=== PATIENT | male | born 1950 | race Caucasian/White ===

== ENCOUNTER 2017-09-22 12:11 | Emergency (ER) | payer MEDICARE, MEDICAID ==
--- NOTE | 2017-09-22 14:50 | RAD ---
INDICATION: Productive cough for one week. Cold symptoms. Remote history of tobacco use. COMPARISON: No relevant prior exams available on the [facility] PACS for comparison. TECHNIQUE: Dual energy PA and routine lateral views of the chest were obtained. REPORT: Clear lungs and pleural spaces. Negative for pneumothorax. The heart, pulmonary vasculature, and mediastinal contours are unremarkable. Unremarkable osseous structures and soft tissue contours. IMPRESSION: No evidence for acute intrathoracic disease.
--- NOTE | 2017-09-22 14:57 | ED ---
Respiratory - HPI Summary HPI Summary: Pt presents with . Pt with a h/o IDDM presents with 1 week h/o productive cough with white sputum. Pt denies fevers. + chills. + persistent coughing. mild nasal congestion. No nunez, vision change. no myalgia + sick contact + fatigue Pt's medications reviewed this visit - History of Current Complaint Chief Complaint: UCRespiratory Stated Complaint: COLD COMPYTOMS Time Seen by Provider: 09/22/17 13:59 Hx Obtained From: Patient, Family/Mental Hygienist Onset/Duration: Gradual Onset, Lasting Days Timing: Constant Initial Severity: Mild Current Severity: Moderate Character: Cough (Productive) Sputum Amount: Small Sputum Color: Yellow Aggravating Factor(s): URI - Allergy/Home Medications Allergies/Adverse Reactions: Allergies Allergy/AdvReac Type Severity Reaction Status Date / Time No Known Allergies Allergy Verified 09/22/17 13:50 Home Medications: Home Medications Insulin Aspart [Novolog] 15 unit SC DAILY 09/22/17 [History Confirmed 09/22/17] Insulin Degludec [Tresiba Flextouch] 25 unit SC BEDTIME 09/22/17 [History Confirmed 09/22/17] Metoprolol Tartrate TAB* [Lopressor TAB*] 25 mg PO DAILY 09/22/17 [History Confirmed 09/22/17] PMH/Surg Hx/FS Hx/Imm Hx Previously Healthy: Yes Endocrine/Hematology History: Reports: Hx Diabetes - Surgical History Surgery Procedure, Year, and Place: none Infectious Disease History: No Infectious Disease History: Denies: Traveled Outside the [place] in Last 30 Days - Family History Known Family History: Positive: Diabetes - Social History Occupation: Retired Lives: With Family Alcohol Use: None Substance Use Type: Reports: None Smoking Status (MU): Never Smoked Tobacco Review of Systems Positive: Chills, Fatigue Positive: Nasal Discharge Positive: Cough All Other Systems Reviewed And Are Negative: Yes Physical Exam Triage Information Reviewed: Yes Vital Signs On Initial Exam: Initial Vitals Temp Pulse Resp BP Pulse Ox 97.9 F 97 16 108/62 97 09/22/17 13:46 09/22/17 13:46 09/22/17 13:46 09/22/17 13:46 09/22/17 13:46 Vital Signs Reviewed: Yes Appearance: Positive: Well-Appearing, No Pain Distress, Well-Nourished Skin: Positive: Warm, Skin Color Reflects Adequate Perfusion, Dry Head/Face: Positive: Normal Head/Face Inspection Eyes: Positive: Normal, EOMI, MARTHA ENT: Positive: Pharynx normal, Nasal congestion, Uvula midline. Negative: Pharyngeal erythema, Sinus tenderness Dental: Positive: Other - none Neck: Positive: Supple, Nontender, No Lymphadenopathy Respiratory/Lung Sounds: Positive: Breath Sounds Present, Wheezes - few, scattered Cardiovascular: Positive: Normal, RRR, Pulses are Symmetrical in both Upper and Lower Extremities Abdomen Description: Positive: Nontender, No Organomegaly, Soft Bowel Sounds: Positive: Present Musculoskeletal: Positive: Normal, Strength/ROM Intact Neurological: Positive: Normal, Sensory/Motor Intact, Alert, Oriented to Person Place, Time Psychiatric: Positive: Normal AVPU Assessment: Alert - [place] Coma Scale Best Eye Response: 4 - Spontaneous Best Motor Response: 6 - Obeys Commands Best Verbal Response: 5 - Oriented Diagnostics - Vital Signs Vital Signs Temp Pulse Resp BP Pulse Ox 09/22/17 13:46 97.9 F 97 16 108/62 97 - Laboratory Lab Statement: Any lab studies that have been ordered have been reviewed, and results considered in the medical decision making process. - Radiology No standard instances Xray Interpretation: No Acute Changes Radiology Interpretation Completed By: Radiologist Disposition - Course Assessment/Plan: Pt presents with productive cough, wheeze x 1 week. Pt with fatigue. Pt with IDDM. will check cxr. abx. hydrate. secretion precaution. OTC cough med. pt comfortable and in agreement - Diagnoses Provider Diagnoses: Bronchitis Discharge - Discharge Plan Condition: Stable Disposition: HOME Prescriptions: DOXYcycline CAP(*) [DOXYcycline 100MG CAP(*)] 100 mg PO BID #20 cap Patient Education Materials: Acute Bronchitis (ED) Referrals: Ge Owusu NP [Primary Care Provider] - Additional Instructions: - Take antibiotics as prescribed until gone - Stay well hydrated. Drink plenty of non-alcoholic, non-caffinated beverages - Eat regular healthy meals - After you have been on antibiotics for 2 days - change your toothbrush and your pillowcase. These infections are spread by secretions - do NOT share eating or drinking utensils - clean items you share with other people such as cell phones, computer mouse, TV remote, computer tablets, etc - okay to take over the counter cough and cold medication - contact your doctor to schedule a follow-up appointment. Contact your doctor or return with questions or concerns
== END 2017-09-22 15:06 | disposition home or self-care (01) ==
LOC: UCCORT 12:11
DX: J40 Bronchitis, not specified as acute or chronic (principal); E11.9 Type 2 diabetes mellitus without complications; Z79.4 Long term (current) use of insulin
CPT/HCPCS: 71020; 99202; G0463